=== PATIENT | male | born 1955 | race African-American/Black ===

== ENCOUNTER 2023-07-08 22:19 | Emergency (ER) | payer SELFPAY ==
[2023-07-08 22:26] VITALS: BMI 26.0
[2023-07-08] MEDS: NITROGLYCERIN SUBLINGUAL 1/150 0.4 MG TAB SL ONE (22:30)
[2023-07-08 23:24] LABS: BASO % 0.7 % (0-2.0); EOS % 0.9 % (0-4.5); HEMATOCRIT 30.2 % (35.4-49); HEMOGLOBIN 10.2 GM/dL (11.7-16.9); LYMPH % 10.7 % (8-40); MCH 27.4 pg (25.7-33.7); MCHC 33.8 g/dl (32.0-35.9); MEAN CELL VOLUME 81.1 fl (80-96); MEAN PLT VOLUME 8.8 fl (7.5-11.1); MONO % 7.3 % (3.8-10.2); NEUT % 80.4 % (42.8-82.8); PLATELET COUNT 184 10^3/uL (134-434); RBC 3.72 M/mm3 (4.00-5.60); WHITE BLOOD COUNT 8.5 K/mm3 (4.0-10.0)
[2023-07-08 23:25] LABS: VENOUS BASE EXCESS -5.1 mmol/L (-2-2); VENOUS O2 SATURATION 57.5 % (70-80); VENOUS PCO2 36.4 mmHg (38-52); VENOUS PH 7.352 (7.310-7.410)
[2023-07-08 23:29] LABS: INR 0.92 (0.83-1.09); PROTHROMBIN TIME (PATIENT) 10.7 SEC (9.7-13.0)
[2023-07-08] MEDS: ACETAMINOPHEN 1000 MG/100 ML BAG IVPB ONE (23:30)
[2023-07-08] MEDS: SODIUM CHLORIDE 0.9% 500 ML INFUS.BAG IV ONE (23:30)
[2023-07-08 23:31] LABS: ACTIVATED PTT 27.6 SECONDS (25.2-36.5)
[2023-07-08] MEDS: MAGNESIUM SULF 50% (8.12 MEQ/2 ML-1 GM VIAL) IVPB ONE (23:31)
[2023-07-08] MEDS ORDERED: ACETAMINOPHEN INJECTION 100 ML IVPB ONE (23:32)
[2023-07-08] MEDS ORDERED: MAGNESIUM SULFATE IN WATER 2 GM/50 ML IVPB IVPB ONE (23:32)
[2023-07-08 23:44] LABS: POTASSIUM 5.1 mmol/L (3.5-5.1)
[2023-07-08 23:46] LABS: ALBUMIN 2.8 g/dl (3.4-5.0); BLOOD UREA NITROGEN 49.4 mg/dL (7-18); CALCIUM 8.9 mg/dL (8.5-10.1)
[2023-07-08 23:48] LABS: CREATININE 3.2 mg/dL (0.55-1.3)
[2023-07-08 23:51] LABS: BILIRUBIN,TOTAL 0.3 mg/dL (0.2-1); TOT PROT 6.3 g/dl (6.4-8.2)
[2023-07-09] MEDS: SODIUM CHLORIDE 0.9% 500 ML INFUS.BAG IV ONE (00:43)
[2023-07-09] MEDS: amLODIPine BESYLATE 10 MG TABLET (FP) PO ONE (00:43)
[2023-07-09] MEDS: VALSARTAN 80 MG TABLET PO ONE (00:43)
[2023-07-09] MEDS ORDERED: VALSARTAN 80 MG TABLET ONE (00:46)
[2023-07-09] MEDS ORDERED: amLODIPine BESYLATE 10 MG TABLET (FP) ONE (00:46)
[2023-07-09 00:57] VITALS: BP 203/95; RESP 18; TEMP 100.1
[2023-07-09] MEDS: ASPIRIN 81 MG CHEWABLE TABLETS PO ONE (00:57)
[2023-07-09] MEDS ORDERED: ASPIRIN 81 MG CHEWABLE TABLETS ONE (00:58)
[2023-07-09 01:43] VITALS: PULSE 122
[2023-07-09 02:04] LABS: EPI CELLS 6 /uL (0-25.1); HYALINE CASTS 1 /uL (0-3.1); PH,URINE 5.5 (5.0-8.0); URINE APPEARANCE CLEAR; URINE BACTERIA 8 /uL (0-1359); URINE BILIRUBIN NEGATIVE (NEGATIVE); URINE COLOR YELLOW; URINE GLUCOSE (UA) 1+ (NEGATIVE); URINE KETONE NEGATIVE (NEGATIVE); URINE LEUK ESTERASE NEGATIVE (NEGATIVE); URINE NITRITE NEGATIVE (NEGATIVE); URINE PROTEIN 3+ (NEGATIVE); URINE RBC 61 /uL (0-23.9); URINE UROBILINOGEN 0.2 mg/dL (0.2-1.0); URINE WBC 9 /uL (0-25.8)
[2023-07-09] MEDS ORDERED: CEFTRIAXONE 1 GM/50 ML BAG ONE (02:05)
[2023-07-09] MEDS: CEFTRIAXONE 1 GM in DEXTROSE 5%-WATER - 50 ML IVPB ONE (02:21)
== END 2023-07-09 02:13 | disposition short-term general hospital (02) ==
LOC: JER 22:19
PROC: 3E03329 Introduction of Other Anti-infective into Peripheral Vein, Percutaneous Approach (ICD-10-PCS; principal; 2023-07-08)
PROC: 3E033NZ Introduction of Analgesics, Hypnotics, Sedatives into Peripheral Vein, Percutaneous Approach (ICD-10-PCS; 2023-07-08)
PROC: 3E033GC Introduction of Other Therapeutic Substance into Peripheral Vein, Percutaneous Approach (ICD-10-PCS; 2023-07-08)
PROC: 3E033GC Introduction of Other Therapeutic Substance into Peripheral Vein, Percutaneous Approach (ICD-10-PCS; 2023-07-08)
DX: R41.82 Altered mental status, unspecified (principal); I10 Essential (primary) hypertension; Z20.822 Contact with and (suspected) exposure to COVID-19
CPT/HCPCS: 0241U-QW; 36415; 70450-TC; 71045-TC-FY; 74176-TC; 80053; 81003; 82550; 82553; 82803; 82962; 83605; 83690; 84484; 85025; 85610; 85730; 86850; 86900; 86901; 87040; 87086; 93005; 93010; 99285-25; J0131